=== PATIENT | female | born 1965 | race Two or more races ===

== ENCOUNTER → 2017-10-23 | Outpatient (CLI) | payer OTHER ==
--- NOTE | 2017-11-04 15:09 | MM ---
Reason for exam: clinical finding. Last mammogram was performed 2 years and 2 months ago. History: Family history of breast cancer in maternal grandmother at age 80. Took hormonal contraceptives for 3 months. Indicated problem(s): pain in both breasts. Physical Findings: Nurse did not find any significant physical abnormalities on exam. MG 3D Diag Mammo W/Cad VIRIDIANA Bilateral CC and MLO view(s) were taken. Technologist: Lisa Deleon RT (R)(M) Prior study comparison: August 29, 2015, mammogram, performed at [facility]. The breast tissue is heterogeneously dense. This may lower the sensitivity of mammography. There is chronic nodularity bilaterally. There is no discrete abnormality. These results were verbally communicated with the patient 11/04/17. ASSESSMENT: Benign, BI-RAD 2 RECOMMENDATION: Routine screening mammogram of both breasts in 1 year. Manage on a clinical basis with regard to left pain.
== END | disposition home or self-care (01) ==
LOC: RADMAMWWP 08:29
PROVIDERS: ATTEND Obstetrics & Gynecology
DX: N64.4 Mastodynia (principal)
CPT/HCPCS: 77062; 77066

== ENCOUNTER → 2017-11-06 | Outpatient (CLI) | payer OTHER ==
--- NOTE | 2017-11-06 11:30 | P.GSHP ---
History of Present Illness H&P Date: 11/06/17 The patient is a 51 year old white female with a complaint of the left breast being larger than the right breast. It is sore and she feels a thickness at that site. She feels her bra is fitting differently. This has occurred over a month. Patient last mammogram on 10/23/17. This was BIRADS 2, no discrete abnormality was seen. She is not having periods as she had a uterine ablation for bleeding. No masses in her breast. No nipple discharge. She used control pills for approximately 3 months and noted the change in her breast close to the proximity of time she stopped the BCP. However despite the fact that she has been off them now for 3 months the left breast has not decreased in size. The patient did have a 10 pound weight gain related to the BCP which she has not lost. The patient drinks approximately 3 cups of coffee per day. The patient does eat chocolate intermittently. The patient does not smoke and is not exposed to secondhand smoke. Family History: 1. maternal breast cancer in er 80's 2. neice dx. breast cancer in her 20's of cancer, not known if she had genetic testing 3. paternal grandfather prostate cancer Past Surgical History: 1. Uterine ablation 2. Carpal tunnel surgery right 3. Right elbow tendon release Past medical history: none Social history: Smoking: Negative Alcohol: Occasional Drugs: Negative Menarche: 16 2 Pregnancies, 2 children, breast fed: both, first at 24 Menopause: Uncertain as she had a uterine ablation 10 years ago and has not had periods since that time BCP: used for three months, and did not feel well so stopped them three months ago, August 2017 Hormones: none - Constitutional Constitutional: Reports sweats, Denies chills, Denies fever - EENT Eyes: denies blurred vision, denies pain Ears: deny: decreased hearing, tinnitus Ears, nose, mouth and throat: Reports headache, Denies sore throat - Breasts Breasts: bilateral: as per HPI - Cardiovascular Cardiovascular: Denies chest pain, Denies shortness of breath - Respiratory Respiratory: Denies cough, Denies 7 - Gastrointestinal Gastrointestinal: Denies abdominal pain, Denies diarrhea, Denies nausea, Denies vomiting - Genitourinary (Female) Genitourinary: Denies dysuria, Denies hematuria - Menstruation Menstruation: Reports as per HPI - Musculoskeletal Comment: Right wrist and right elbow surgery Musculoskeletal: Denies myalgias - Integumentary Integumentary: Denies pruritus, Denies rash - Neurological Neurological: Denies numbness, Denies weakness - Psychiatric Psychiatric: Denies anxiety, Denies depression - Endocrine Comment: Patient 10 pound weight gain related to BCP. Endocrine: Denies fatigue, Denies weight change - Hematologic/Lymphatic Comment: none - Allergic/Immunologic Allergic/Immunologic: Reports seasonal allergies Medications and Allergies Home Medications and Allergies Comment(s): MVI magnesium nasocort Allergies Allergy/AdvReac Type Severity Reaction Status Date / Time Sulfa (Sulfonamide Allergy Rash/Hives Verified 11/06/17 11:30 Antibiotics) Surgical - Exam - General well developed, well nourished, no distress - Eyes normal ocular movement, no icteric - ENT no hearing loss, no congestion - Neck no masses, trachea midline - Respiratory normal respiratory effort, clear to auscultation - Cardiovascular Rhythm: regular Heart Sounds: normal: S1, S2 - Abdomen Abdomen: soft, non tender, no guarding, no rigid, no rebound - Neurologic no disoriented, no combative - Musculoskeletal normal gait, normal posture - Psychiatric oriented to time, oriented to person, oriented to place, speech is normal, memory intact Breast examination: Right breast: Multiple positional exam fibrocystic changes no discrete abnormalities of concern Right axilla: No adenopathy of concern Left breast: Fibrocystic changes noted on multiple positional exam with some increased fullness in the upper outer quadrant believed to be related to fibrocystic change Left axilla: No adenopathy of concern Results mammogram report reviewed Assessment and Plan Assessment: Impression/plan: 1. Left breast fullness and pain 2. BIRADS 2 mammogram October 2017 3. Uterine ablation 4. Fullness on exam in the UOQ of the left breast Plan: 1. FNA left breast fullness 2. Further recommendation following FNA patient to call in one week for results if this is atypical biopsy would be recommended otherwise repeat exam in 3 months 3. Physician exam in 3 months after patient stops caffeine and starts primrose oil 4. We'll see patient sooner if she has any questions or concerns cc: DR. Brock Guillermo, [place], Dr. Baker
--- NOTE | 2017-11-06 11:33 | P.PN ---
Progress Note - Text Progress Note Date: 11/06/17 FNA of the left breast Preprocedure diagnosis: Increased fullness left breast upper outer quadrant area Surgeon: Prateek Procedure: The area of concern in the left breast was prepped using alcohol. A 22-gauge needle was used to make multiple passes into the area of concern connected to a syringe with vacuum suction being applied. The specimen was obtained and the specimen was placed on a slide which was prepped and sent to pathology. The patient tolerated the procedure with no complications.
[2017-11-06 11:36] VITALS: BP 120/74; PULSE 85; TEMP 98.6; BMI 24.4
== END | disposition home or self-care (01) ==
LOC: WWCWWP 10:55
PROVIDERS: ATTEND Surgery
DX: N64.9 Disorder of breast, unspecified (principal)
CPT/HCPCS: 88173

== ENCOUNTER → 2018-08-10 | Outpatient (CLI) | payer OTHER ==
[2018-08-10 17:43] LABS: Basophils # (A) 0.1 k/uL (0-0.2); Basophils % (A) 1 %; Eosinophils # (A) 0.3 k/uL (0-0.7); Eosinophils % (A) 4 %; HGB 14.4 gm/dL (11.4-16.0); Lymphocytes # (A) 2.4 k/uL (1.0-4.8); Lymphocytes % (A) 30 %; MCH 33.2 pg (25.0-35.0); MCHC 33.5 g/dL (31.0-37.0); MCV 99.3 fL (80.0-100.0); Mean Platelet Volume 8.1; Monocytes # (A) 0.5 k/uL (0-1.0); Monocytes % (A) 6 %; Neutrophils # (A) 4.5 k/uL (1.3-7.7); Neutrophils % (A) 56 %; Platelet Count 239 k/uL (150-450); RBC 4.33 m/uL (3.80-5.40); RDW 12.5 % (11.5-15.5)
== END | disposition home or self-care (01) ==
LOC: LABPAT 17:20
PROVIDERS: ATTEND Obstetrics & Gynecology
DX: Z01.818 Encounter for other preprocedural examination (principal); Z01.812 Encounter for preprocedural laboratory examination
CPT/HCPCS: 36415; 85025; 93005

== ENCOUNTER 2018-08-18 06:28 | Day surgery (SDC) | payer OTHER ==
[2018-08-12 12:53] VITALS: BMI 25.3
--- NOTE | 2018-08-17 16:05 | P.HPOB ---
History of Present Illness H&P Date: 08/17/18 Chief Complaint: Family planning This is a 52-year-old female 2 para 2 who presents for laparoscopic bilateral tubal ligation via fulguration for family planning. She has had a previous endometrial ablation and does not have any periods at this time however her hormone levels do not show that she is menopausal and she is in a new relationship and needs prevention. She does experience menstrual symptoms but has no flow. Obstetrical history: . History of 2 vaginal deliveries. Gynecologic history: History of genital warts in the past. Social history: She is . She does clerical work. Review of Systems Constitutional: Reports fatigue, Reports night sweats, Denies chills, Denies fever Eyes: denies blurred vision, denies pain Ears, nose, mouth and throat: Reports headache (Occasional), Denies sore throat Cardiovascular: Denies chest pain, Denies shortness of breath Respiratory: Denies cough Gastrointestinal: Denies abdominal pain, Denies diarrhea, Denies nausea, Denies vomiting Genitourinary: Denies dysuria, Denies hematuria Menstruation: Reports amenorrhea, Denies postmenopausal Musculoskeletal: Denies myalgias Integumentary: Denies pruritus, Denies rash Neurological: Denies numbness, Denies weakness Psychiatric: Reports insomnia, Reports irritability Hematologic/Lymphatic: Reports easy bruising Past Medical History Past Medical History: Osteoarthritis (OA), Skin Disorder Additional Past Medical History / Comment(s): Imelda sclerosis on outside of labia. History of Any Multi-Drug Resistant Organisms: None Reported Past Surgical History: Orthopedic Surgery, Uterine Ablation Additional Past Surgical History / Comment(s): Carpal tunnel right wrist. Tendon release right elbow Past Anesthesia/Blood Transfusion Reactions: Family History of Problems w/ Anesthesia, Motion Sickness Additional Past Anesthesia/Blood Transfusion Reaction / Comment(s): Mom slow to wake up. Past Psychological History: No Psychological Hx Reported Smoking Status: Never smoker Past Alcohol Use History: Occasional Past Drug Use History: None Reported - Past Family History Mother Family Medical History: Cancer, Diabetes Mellitus, Thyroid Disorder Additional Family Medical History / Comment(s): Kidney cancer. Father Additional Family Medical History / Comment(s): heart disorder Sister(s) Family Medical History: Cancer, Thyroid Disorder Medications and Allergies Home Medications Medication Instructions Recorded Confirmed Type Multivitamins, Thera [Multivitamin 1 tab PO DAILY 11/06/17 08/12/18 History (formulary)] Triamcinolone Acetonide [Nasacort] 1 spray EA NOSTRIL DAILY 11/06/17 08/12/18 History Magnesium 1 tab PO DAILY 08/12/18 08/12/18 History Allergies Allergy/AdvReac Type Severity Reaction Status Date / Time Sulfa (Sulfonamide Allergy Rash/Hives Verified 08/12/18 12:53 Antibiotics) Exam Osteopathic Statement: *. No significant issues noted on an osteopathic structural exam other than those noted in the History and Physical/Consult. HEENT: Within normal limits Heart: Regular rate and rhythm Lungs: Clear to auscultation bilaterally Abdomen: Soft, nontender Pelvic exam: Uterus is anteverted, nontender, with no adnexal masses or tenderness palpated. Extremities: Negative Homans Assessment and Plan (1) Family planning Status: Acute Code(s): Z30.09 - ENCOUNTER FOR OTH GENERAL CNSL AND ADVICE ON CONTRACEPTION SNOMED Code(s): 469907751 Plan: Proceed with laparoscopic bilateral tubal ligation via fulguration. I have discussed the risks, benefits, and alternative therapies for the above- mentioned procedure and for both sedation/anesthesia as well as necessary blood products administration, if indicated, as they pertain to this patient. The patient has indicated her understanding and acceptance of the risks and procedures discussed.
[~2018-08-18 06:28] MED LIST: DEXAMETHASONE SOD PHOSPHATE 10 MG/ML 1 ML VIAL IV ONE; HYDROmorphone 0.5 MG/0.5 ML SYRINGE IVP PRN; LACTATED RINGERS 1,000 ML IV SCH; LIDOCAINE 1% 20 ML VIAL (10MG/ML) FOR IV START INTRADERMA PRN; MIDAZOLAM 2 MG/2 ML VIAL IV PRN; ONDANSETRON 4 MG/2 ML VIAL IVP ONE; Pre Op ABX Message 1 EACH MISC MISCELLANE ONE; SCOPOLAMINE 1.5MG/72HR PATCH TRANSDERM ONE
[2018-08-18] MEDS ORDERED: MIDAZOLAM 2 MG/2 ML VIAL ONE (07:29)
[2018-08-18] MEDS ORDERED: PROPOFOL 10 MG/ML 20 ML VIAL IV ONE (07:29)
[2018-08-18] MEDS ORDERED: ROCURONIUM BROMIDE 10 MG/ML 10 ML VIAL IV ONE (07:29)
[2018-08-18] MEDS ORDERED: fentaNYL (PF) 50 MCG/ML 2 ML AMP ONE (07:29)
[2018-08-18] MEDS ORDERED: NEOSTIGMINE 1 MG/ML 10 ML VIAL ONE (07:29)
[2018-08-18] MEDS ORDERED: KETOROLAC 30 MG/ML 1 ML VIAL ONE (07:29)
[2018-08-18] MEDS ORDERED: LIDOCAINE 1% INJ 10MG/ML (20 ML MDV) ONE (07:29)
[2018-08-18] MEDS ORDERED: GLYCOPYRROLATE 0.2 MG/ML 2 ML VIAL ONE (07:29)
[2018-08-18] MEDS ORDERED: BUPIVACAINE (PF) 0.5% 30 ML VIAL SQ ONE ×2 (07:55)
--- NOTE | 2018-08-18 08:21 | P.OP ---
Date of Procedure: 08/18/18 Preoperative Diagnosis: Family planning Postoperative Diagnosis: Same Procedure(s) Performed: Laparoscopic bilateral tubal ligation via fulguration Anesthesia: JARRED Surgeon: Maria A Baker Estimated Blood Loss (ml): 10 Pathology: none sent Condition: stable Disposition: same day Indications for Procedure: This is a 52-year-old female 2 para 2 who presents for laparoscopic bilateral tubal ligation via fulguration for family planning. She has had a previous endometrial ablation and does not have any periods at this time however her hormone levels do not show that she is menopausal and she is in a new relationship and needs prevention. She does experience menstrual symptoms but has no flow. Operative Findings: Normal uterus tubes and ovaries are noted. Uterus is found to be anteverted. Appendix is visualized and appears normal. Description of Procedure: The patient is taken to the operating room where she is placed in the dorsal lithotomy position. She is prepped and draped in the normal sterile fashion. Bladder is drained with a catheter and then removed. Examination is performed under anesthesia. Uterus is found to be in a anteverted position. No adnexal masses were palpated. Next a bivalve speculum was placed in the patient's vagina. A single-tooth tenaculum was used to grasp the anterior lip of the cervix. An acorn uterine manipulator was then inserted through the cervix and attached to the tenaculum. Speculum was then removed. Gloves are changed and attention was turned to the abdomen. The infraumbilical fold was grasped in transverse fashion with 2 Allis clamps. A small transverse incision was made with a scalpel. A hemostat was used to carry the incision down to the underlying layer of fascia. A towel clip was placed above the umbilicus for retraction. A 11 mm disposable bladeless trocar was then inserted into the peritoneal cavity under direct visualization. Once inside, pneumoperitoneum was achieved with CO2 gas. The insert was removed and the camera was placed. Intraperitoneal placement was confirmed. No bleeding was noted. Next the patient was placed in Trendelenburg position. A small stab incision was made suprapubically and a 5 mm disposable bladeless trocar was inserted into the peritoneal cavity under direct visualization. Once inside pelvic contents were inspected. Next a bipolar Kleppinger instrument was placed through the inferior trocar and the midportion of each tube was brought away from other structures and completely fulgurated on approximate 2-3 cm segment of each tube. Excellent hemostasis was noted. A picture was taken. Pneumoperitoneum was released after the inferior trocar was removed under direct visualization. The upper trocar was then removed. The fascial incision was closed with 0 Vicryl suture in int errupted [id number] stitch. The skin incisions were then closed with 4-0 Vicryl suture in a subcuticular fashion. Next the incision sites were injected with half percent Marcaine. Approximately 6 mL were used. Next the uterine manipulator was removed. A ring forcep was used to grasp the anterior lip of the cervix for hemostasis. Once the ring forcep was removed, minimal bleeding was noted. All sponge and needle counts are correct. The patient is then taken to recovery room in stable condition.
[2018-08-18 08:30] VITALS: TEMP 97.8
[2018-08-18] MEDS ORDERED: LACTATED RINGERS 1,000 ML IV ONE (08:54)
[2018-08-18 09:19] VITALS: RESP 16
[2018-08-18 09:57] VITALS: BP 114/66; PULSE 60
== END 2018-08-18 10:17 | disposition home or self-care (01) ==
LOC: OR 06:28
PROVIDERS: ATTEND Obstetrics & Gynecology
DX: Z30.2 Encounter for sterilization (principal); M19.90 Unspecified osteoarthritis, unspecified site; L90.0 Lichen sclerosus et atrophicus; Z79.899 Other long term (current) drug therapy; Z88.2 Allergy status to sulfonamides; Z80.51 Family history of malignant neoplasm of kidney; Z83.3 Family history of diabetes mellitus
CPT/HCPCS: 81025; 58670; J2250; J1100; J2710; J2405; J2001; J3010; J1885; J2704; J1170

== ENCOUNTER → 2018-11-17 | Outpatient (CLI) | payer OTHER ==
--- NOTE | 2018-11-19 11:42 | MM ---
Reason for exam: screening (asymptomatic). Last mammogram was performed 1 year and 1 month ago. History: Family history of breast cancer in maternal grandmother at age 80. Took hormonal contraceptives for 3 months. Physical Findings: A clinical breast exam by your physician is recommended on an annual basis and results should be correlated with mammographic findings. MG 3D Screening Mammo W/Cad Bilateral CC and MLO view(s) were taken. Prior study comparison: October 23, 2017, bilateral MG 3d diag mammo w/cad VIRIDIANA. The breast tissue is heterogeneously dense. This may lower the sensitivity of mammography. Right upper outer quadrant lymph node was previously partly outside the field of view. Now better seen. Nodular asymmetry medial left breast not clearly seen on MLO. Further evaluation recommended. ASSESSMENT: Incomplete: need additional imaging evaluation, BI-RAD 0 RECOMMENDATION: Special view mammogram of the left breast. (3D) If lesion persists on supplemental views, image directed ultrasound is recommended. [facility] will attempt to contact patient to return for supplemental views and ultrasound if indicated.
== END | disposition home or self-care (01) ==
LOC: RADMAMWWP 07:12
PROVIDERS: ATTEND Obstetrics & Gynecology
DX: Z12.31 Encounter for screening mammogram for malignant neoplasm of breast (principal); Z80.3 Family history of malignant neoplasm of breast
CPT/HCPCS: 77063; 77067

== ENCOUNTER → 2018-12-01 | Outpatient (CLI) | payer OTHER ==
--- NOTE | 2018-12-01 10:49 | MM ---
Reason for exam: additional evaluation requested from abnormal screening. Last mammogram was performed less than 1 month ago. History: Family history of breast cancer in maternal grandmother at age 80, breast cancer in sister at age 59, and breast cancer in maternal aunt at age 65. Took hormonal contraceptives for 1 year 3 months beginning at age 19. Physical Findings: Nurse did not find any significant physical abnormalities on exam. MG 3D Work Up W/Cad LT Spot compression CC, CCRM, CCRL, and LM view(s) were taken of the left breast. Prior study comparison: November 17, 2018, bilateral MG 3d screening mammo w/cad. October 23, 2017, bilateral MG 3d diag mammo w/cad VIRIDIANA. The breast tissue is heterogeneously dense. This may lower the sensitivity of mammography. 9mm left medial asymmetry 7cm from nipple persists with probable correlate of the inferior breast. These results were verbally communicated with the patient and result sheet given to the patient on 12/01/18. ASSESSMENT: Incomplete: need additional imaging evaluation, BI-RAD 0 RECOMMENDATION: Ultrasound of the left breast.
--- NOTE | 2018-12-01 10:50 | USB ---
Reason for exam: additional evaluation requested from abnormal screening. History: Family history of breast cancer in maternal grandmother at age 80, breast cancer in sister at age 59, and breast cancer in maternal aunt at age 65. Took hormonal contraceptives for 1 year 3 months beginning at age 19. US Breast Workup Limited LT Left limited breast ultrasound including focal area of concern, retroareolar and axilla demonstrates ductal ectasia at 7 o'clock, 9 o'clock and the posterior nipple. No sonographic correlate. These results were verbally communicated with the patient and result sheet given to the patient on 12/01/18. ASSESSMENT: Probably benign, BI-RAD 3 RECOMMENDATION: Follow-up diagnostic mammogram of the left breast in 6 months.
== END | disposition home or self-care (01) ==
LOC: RADMAMWWP 08:45
PROVIDERS: ATTEND Obstetrics & Gynecology
DX: R92.8 Other abnormal and inconclusive findings on diagnostic imaging of breast (principal)
CPT/HCPCS: 77061; 77065

== ENCOUNTER → 2019-07-05 | Outpatient (CLI) | payer OTHER | END | disposition home or self-care (01) | DX: E04.2 Nontoxic multinodular goiter (principal) | CPT/HCPCS: 76536 ==

== ENCOUNTER → 2020-01-26 | Outpatient (CLI) | payer OTHER ==
--- NOTE | 2020-01-27 07:44 | MM ---
Reason for exam: additional evaluation requested from prior study. Last mammogram was performed 1 year and 2 months ago. History: Family history of breast cancer in maternal grandmother at age 80, breast cancer in sister at age 59, and breast cancer in maternal aunt at age 65. Took hormonal contraceptives for 1 year 3 months beginning at age 19. Physical Findings: Nurse did not find any significant physical abnormalities on exam. MG 3D Diag Mammo W/Cad VIRIDIANA Bilateral CC and MLO view(s) were taken. Prior study comparison: December 01, 2018, left breast MG 3d work up w/cad LT. November 17, 2018, bilateral MG 3d screening mammo w/cad. The breast tissue is heterogeneously dense. This may lower the sensitivity of mammography. There is an indeterminate group of microcalcifications in the upper outer left breast. These results were verbally communicated with the patient and result sheet given to the patient on 01/26/20. ASSESSMENT: Suspicious, BI-RAD 4 RECOMMENDATION: Stereotactic core biopsy of the left breast. Called Dr. Baker's office with mammographic findings and has scheduled an appointment for the patient for 02/11/20 at 7:[address] Chandra. Biopsy scheduled for 02/11/20 at 8:00. PRELIMINARY REPORT CALLED AND FAXED TO DR. CHANDRA ON 01/27/20.
--- NOTE | 2020-01-27 16:27 | BD ---
EXAMINATION TYPE: Axial Bone Density DATE OF EXAM: 01/26/2020 COMPARISON: NONE CLINICAL HISTORY: Postmenopausal female Height: 63 Weight: 126.6 FRAX RISK QUESTIONS: Alcohol (3 or more units per day): no Family History (Parent hip fracture): no Glucocorticoids (More than 3mos): no (Ex: prednisone, prednisolone, methylprednisolone, dexamethasone, and hydrocortisone). History of Fracture in Adulthood: no Secondary Osteoporosis: 1. Type 1 Diabetes: no 2. Hyperthyroidism: no 3. Menopause before 45: yes 4. Malnutrition: no 5. Chronic liver disease: no Rheumatoid Arthritis: no Current Tobacco Use: no RISK FACTORS HISTORY OF: Surgery to Spine/Hip(right/left)/Wrist (right/left): no Family History of Osteoporosis: no Active: yes Diet low in dairy products/other sources of calcium: yes Postmenopausal woman: ablation before age 46 Lost more than 2 inches in height since high school: no MEDICATIONS: none Additional History: EXAM MEASUREMENTS: Bone mineral densitometry was performed using the [employer] System. Bone mineral density as measured about the Lumbar spine is: ----- L1-L4(G/cm2): 1.261 T Score Values are as follows: ----- L2: 0.3 ----- L3: 1.0 ----- L4: 1.3 ----- L1-L4: 0.7 Bone mineral density : baseline Bone mineral density about the R hip (g/cm2): 0.920 Bone mineral density about the L hip (g/cm2): 0.948 T Score values are as follows: -----R Neck: -0.8 -----L Neck: -0.6 -----R Total: -0.2 -----L Total: 0.0 Bone mineral density : baseline IMPRESSION: Normal (Values between +1 and -1 indicate normal bone mass). Consider repeating this study in 5 year s or sooner if there is some new clinical indication. NOTE: T-SCORE=SD OF THE YOUNG ADULT MEAN.
== END | disposition home or self-care (01) ==
LOC: RADMAMWWP 14:33
PROVIDERS: ATTEND Obstetrics & Gynecology
DX: R92.8 Other abnormal and inconclusive findings on diagnostic imaging of breast (principal); N95.1 Menopausal and female climacteric states
CPT/HCPCS: 77062; 77066; 77080

== ENCOUNTER → 2020-02-11 | Day surgery (SDC) | payer OTHER ==
[2020-02-11 07:12] VITALS: RESP 16
--- NOTE | 2020-02-11 08:03 | P.GSHP ---
History of Present Illness H&P Date: 02/11/20 Chief Complaint: Abnormal left breast mammogram Chantel is a 54-year-old white female seen in consultation for Dr. Baker who had a bilateral mammogram performed on . This revealed an indeterminate group of microcalcifications in the outer left breast. Stereotactic core biopsy was recommended. No lesions of concern were noted in the right breast. The patient states that approximately a year and a half ago she had a mammogram which revealed some thickening in the left breast and a six-month follow-up was recommended. However secondary to Covid. This was delayed until now when a bilateral mammogram was performed. She does not feel any lumps masses or nodul es in her breast. She is not complaining of any nipple discharge or skin changes. He is not had any trauma or infection in the breast. She had a questionable core biopsy/aspiration of the left breast approximately year and a half ago and that was benign. Caffeine: 2-3 cups of coffee per day Nicotine: Negative Theophylline: Occasional hormones: none uses Black Cohash Family history: mother: kidney cancer sister: tripple negative breast cancer dx. at 59 maternal neice: of breast cancer maternal aunt: breast cancer maternal grandmother: breast cancer Hormonal History: menarche: 17 , breast fed: yes, age at first : 23 menopause: ablataion stopped having periods in 30's hormones: none BCP: 1 year Surgical history: Tubal ligation Uterine ablation Right wrist carpal tunnel Right elbow release Medical History: none Social History: nicotine: none alcohol: Occasional Drugs: Negative - Constitutional Constitutional: Reports sweats - EENT Eyes: denies blurred vision, denies pain Ears: deny: decreased hearing, tinnitus Ears, nose, mouth and throat: Denies headache, Denies sore throat - Breasts Breasts: bilateral: as per HPI - Cardiovascular Cardiovascular: Denies chest pain, Denies shortness of breath - Respiratory Respiratory: Denies cough, Denies 7 - Gastrointestinal Gastrointestinal: Denies abdominal pain, Denies diarrhea, Denies nausea, Denies vomiting - Genitourinary (Female) Genitourinary: Denies dysuria, Denies hematuria - Menstruation Menstruation: Reports postmenopausal - Musculoskeletal Musculoskeletal: Denies myalgias - Integumentary Comment: lichen sclerosis Integumentary: Denies pruritus, Denies rash - Neurological Neurological: Denies numbness, Denies weakness - Psychiatric Psychiatric: Denies anxiety, Denies depression - Endocrine Endocrine: Denies fatigue, Denies weight change - Hematologic/Lymphatic Comment: none - Allergic/Immunologic Allergic/Immunologic: Reports seasonal allergies Past Medical History Past Medical History: No Reported History, Skin Disorder Additional Past Medical History / Comment(s): saul sclerosis on outside of labia History of Any Multi-Drug Resistant Organisms: None Reported Past Surgical History: Tubal Ligation, Uterine Ablation Additional Past Surgical History / Comment(s): carpal tunnel right wrist 2012. tendon release right elbow 2012. uterine ablation 2007 Past Anesthesia/Blood Transfusion Reactions: No Reported Reaction Past Psychological History: No Psychological Hx Reported Smoking Status: Never smoker Past Alcohol Use History: Occasional Past Drug Use History: None Reported - Past Family History Mother Family Medical History: Cancer, Diabetes Mellitus, Thyroid Disorder Additional Family Medical History / Comment(s): Kidney cancer. Father Additional Family Medical History / Comment(s): heart disorder Sister(s) Family Medical History: Cancer, Thyroid Disorder Medications and Allergies Home Medications Medication Instructions Recorded Confirmed Type Multivitamins, Thera [Multivitamin 1 tab PO DAILY 11/06/17 02/11/20 History (formulary)] Triamcinolone Acetonide [Nasacort] 1 spray EA NOSTRIL DAILY 11/06/17 02/11/20 History Black Cohosh Root [Black Cohosh] 200 mg PO DAILY 01/31/20 02/11/20 History Allergies Allergy/AdvReac Type Severity Reaction Status Date / Time Sulfa (Sulfonamide Allergy Rash/Hives Verified 02/11/20 07:07 Antibiotics) Surgical - Exam Vital Signs Temp Pulse Resp BP 97.9 F 65 16 118/76 02/11/20 07:08 02/11/20 07:08 02/11/20 07:08 02/11/20 07:08 BMI 22.1 - General well developed, well nourished, no distress - Eyes normal ocular movement - ENT no hearing loss, no congestion - Neck no masses, trachea midline - Respiratory normal expansion, normal respiratory effort, clear to auscultation - Cardiovascular Rhythm: regular Heart Sounds: normal: S1, S2 - Abdomen Abdomen: soft, non tender, no guarding, no rigid, no rebound - Integumentary normal turgor - Neurologic no disoriented, no combative - Musculoskeletal normal gait - Psychiatric oriented to time, oriented to person, oriented to place, speech is normal, memory intact Breast exam: BRA: 34C inspection: I lateral grade 2 ptosis Palpation: Right breast: Multiple positional exam fibrocystic changes, no dominant masses or nodules of concern Right axilla: No adenopathy of concern left breast: Multiple positional exam fibrocystic changes, no dominant masses or nodules of concern Left axilla: No adenopathy of concern Results Mammogram results reviewed Assessment and Plan Assessment: Impression: 1. Radiographic abnormality left breast 2. Fibrocystic breast changes 3. Probable perimenopausal 4. Family history of breast cancer Plan: 1. Sterotactic detected core biopsy left breast 2. Consider genetic testing 3. Patient is presently taking black cohosh she will stop this entirely, results of the biopsy CC: Dr. Baker, Dr. Anders Risk and benefits of the procedure were discussed with the patient and her . They understand the risks include but are not limited to bleeding, infection, reaction to the anesthetic. If the lesion were to be discordant on pathology we may recommend an open biopsy. If pathology dictated at surgery may be recommended. Alternatives such as watchful waiting open biopsy were discussed but not recommended. They understand and wish to proceed. encounter 25 minutes, > 50% of time in planning and counselling
--- NOTE | 2020-02-11 09:05 | P.PCN ---
Date of Procedure: 02/11/20 Preoperative Diagnosis: Left breast upper outer quadrant microcalcifications of concern Postoperative Diagnosis: Same Procedure(s) Performed: Stereotactic core biopsy left breast Anesthesia: local Surgeon: Larissa Chandra Pathology: other (Breast tissue) Condition: stable Disposition: same day Indications for Procedure: Microcalcifications of concern left breast upper outer quadrant Operative Findings: Dense breast tissue Description of Procedure: Chantel is a 54-year-old white female who was noted on a routine mammogram to have microcalcifications of concern in the upper outer quadrant of the left breast. A stereotactic core biopsy was recommended. Risk and benefits of the procedure were discussed with the patient as well as alternatives and she wished to proceed. The patient was taken to the stereotactic core biopsy wound. A scalp film was obtained. A lateral to medial approach was utilized. The area of concern was identified. The lesion was targeted. The breast was prepped using Betadine. 20 mL of 1% lidocaine were used to anesthetize the area of concern. A petite needle, 9-gauge vacuum-assisted core rotating needle was inserted to the correct location. Prefire films were obtained. The needle appeared to be in the archie ect location the needle was fired and post-fire films were obtained. 13 specimens were obtained. Radiograph of the specimen revealed a small focus of calcification the patient was concerned would not adequately sampled the area. Additional specimens were taken. Radiograph again revealed a calcification in the second tissue which had been sampled. This was reviewed with Dr. Bush from radiology. It was felt that the area had been sampled. A trimark clip was placed. The clip appeared to be in the area of the microcalcifications. The patient tolerated the procedure in stable condition. She will follow up with Dr. Cronin next week for results.
[2020-02-11 09:33] VITALS: BP 115/71; PULSE 61; TEMP 98
--- NOTE | 2020-02-11 10:06 | MM ---
EXAMINATION TYPE: MG stereo VAD BX LT DATE OF EXAM: 02/11/2020 COMPARISON: 01/26/2020 CLINICAL HISTORY: 54-year-old female referred for stereotactic core needle biopsy left breast microcalcifications posterior upper outer quadrant. TECHNIQUE: Stereotactic guided core biopsy of the left breast. FINDINGS: The procedure of stereotactic guided core biopsy was explained to the patient. Benefits, alternatives, and risks were discussed. An informed consent was then obtained. The [facility] pathway for biopsy was chosen. Shortness pathway was a lateral approach. I performed the localization, then surgeon, Dr. Mehrdad Lopez performed the remainder of the procedure. A vacuum assisted petite biopsy gun was used to obtain multiple core samples. The patient tolerated the procedure well without any immediate complication. The patient was kept in the radiology department for short stay after the procedure and then discharged home in stable condition. Only 3-4 punctate calcifications are identified in specimen mammogram. Post biopsy stereo image shows the clip to appear in satisfactory position relative to the targeted area of concern on the preprocedure images. However, on the postbiopsy mammogram, we note that only the anteriormost margin of the grouped calcifications may have been sampled and there is approximately 1.0 to 1.5 cm of anterolateral migration. IMPRESSION: UNCOMPLICATED STEREOTACTIC GUIDED CORE BIOPSY LEFT UPPER OUTER QUADRANT POSTERIOR MICROCALCIFICATIONS. NOTE THAT THE AREA MAY HAVE BEEN UNDERSAMPLED ONLY A FEW PUNCTATE CALCIFICATIONS ARE IN THE SPECIMEN MAMMOGRAM AND THE POSTBIOPSY MAMMOGRAM SUGGESTS THAT ONLY THE FAR ANTERIOR MARGIN WAS SAMPLED. 1.0 TO 1.5 CM OF ANTEROLATERAL CLIP MIGRATION. IF BENIGN RESULTS, REPEAT BIOPSY IS RECOMMENDED. CONSIDERATION CAN BE GIVEN TO A CC FROM ABOVE APPROACH THE CALCIFICATIONS ARE SLIGHTLY BETTER SEEN IN THAT PROJECTION. FULL PATHOLOGY RESULTS TO FOLLOW. Pathology Results: High Risk LEFT BREAST, STEREOTACTIC CORE BIOPSY: Focal atypical lobular hyperplasia (ALH) and background fibrocystic changes including fibrosis, sclerosing adenosis, cysts, apocrine metaplasia and rare microcalcifications. Recommendation Surgical consult of the left breast. MEL
== END ==
LOC: RADMAMWWP 06:59
PROVIDERS: ATTEND Surgery
DX: N60.82 Other benign mammary dysplasias of left breast (principal); N60.32 Fibrosclerosis of left breast; N60.22 Fibroadenosis of left breast; Z80.3 Family history of malignant neoplasm of breast; Z80.51 Family history of malignant neoplasm of kidney; Z98.51 Tubal ligation status; Z98.890 Other specified postprocedural states; Z83.3 Family history of diabetes mellitus; Z82.49 Family history of ischemic heart disease and other diseases of the circulatory system; Z83.49 Family history of other endocrine, nutritional and metabolic diseases; Z79.899 Other long term (current) drug therapy; Z88.2 Allergy status to sulfonamides
CPT/HCPCS: 88305; 19081; A4648; J2001

== ENCOUNTER → 2020-02-18 | Outpatient (CLI) | payer OTHER ==
[2020-02-18 11:58] VITALS: BP 125/73; PULSE 77; RESP 18; TEMP 97.6
--- NOTE | 2020-02-18 12:27 | P.PN ---
Subjective Progress Note Date: 02/18/20 Principal diagnosis: Atypical lobular hyperplasia left breast Chantel is a 54-year-old white female status post attempted core biopsy of calcifications in the left breast performed on 02/11/20. Pathology revealed focal atypical lobular hyperplasia and background fibrocystic changes. The area was removed with the radiologist the feeling was the anterior most margin of calcifications may have been sampled and there was an approximately 1-1.5 cm of anterior lateral migration. Therefore if the findings were benign than repeat biopsy was recommended. As the findings revealed atypical lobular hyperplasia therefore it is recommended that needle localization and excision of that area be performed. The patient tolerated the procedure with no complications. 61-year-old sister this week of metastatic breast cancer. We are uncertain as to whether she had genetic testing. Objective - Vital Signs Vital signs: Vital Signs Temp 97.6 F 02/18/20 11:53 Pulse 77 02/18/20 11:53 Resp 18 02/18/20 11:53 BP 125/73 02/18/20 11:53 Pulse Ox 98 02/18/20 11:53 Intake & Output 02/17/20 02/18/20 02/18/20 18:59 06:59 18:59 Weight 55.792 kg - Constitutional General appearance: Present: average body habitus - EENT Eyes: Present: EOMI ENT: Present: hearing grossly normal - Neck Neck: Present: normal ROM - Respiratory Respiratory: bilateral: CTA - Cardiovascular Rhythm: regular Heart sounds: normal: S1, S2 - Integumentary Integumentary: Present: normal turgor - Musculoskeletal Musculoskeletal: Present: gait normal - Psychiatric Psychiatric: Present: A&O x's 3 - Additional findings Additional findings: biopsy site left breast clean and dry no evidence of infection Assessment and Plan Assessment: Impression: 1. Atypical lobular hyperplasia answered tactic core biopsy left breast 2. Patient considering genetic testing 3. Patient has stopped taking black cohosh Plan: 1. Needle localization excisional biopsy area of concern left breast, this may include an area more extensive than just the area of the clip this has been reviewed with radiology 2. If patient is going to have genetic testing done would recommend this be done prior to the biopsy Risks and benefits of procedure discussed with the patient and her . They understand and we'll proceed in the near future. Dr. Baker, Dr. Anders encounter 15 minutes, > 50% of time in planning and counselling
== END | disposition home or self-care (01) ==
LOC: WWCWWP 11:35
PROVIDERS: ATTEND Surgery
DX: Z53.9 Procedure and treatment not carried out, unspecified reason (principal)

== ENCOUNTER → 2020-11-08 | Outpatient (CLI) | payer OTHER ==
[2020-11-08 13:44] LABS: Basophils # (A) 0.06 X 10*3/uL (0.00-0.10); Basophils % (A) 1.2 %; Eosinophils # (A) 0.19 X 10*3/uL (0.04-0.35); Eosinophils % (A) 3.7 %; HCT 42.9 % (37.2-46.3); HGB 13.8 g/dL (12.0-15.0); Lymphocytes # (A) 1.39 X 10*3/uL (0.90-5.00); MCH 32.7 pg (27.0-32.0); MCHC 32.2 g/dL (32.0-37.0); MCV 101.7 fL (80.0-97.0); Mean Platelet Volume 11.7 fL (9.5-12.2); Monocytes # (A) 0.54 X 10*3/uL (0.20-1.00); Monocytes % (A) 10.5 %; Neutrophils # (A) 2.95 X 10*3/uL (1.80-7.70); Neutrophils % (A) 57.4 %; Platelet Count 192 X 10*3/uL (140-440); RBC 4.22 X 10*6/uL (4.10-5.20); RDW 11.8 % (11.5-14.5); WBC 5.14 X 10*3/uL (4.50-10.00)
[2020-11-08 20:59] LABS: ALT 25 U/L (8-44); AST 27 U/L (13-35); African American GFR (CKD) 97.6 (60.0-200.0); Alkaline Phosphatase 82 U/L (41-126); BUN/Creat Ratio 28.75 Ratio (12.00-20.00); Calcium 9.8 mg/dL (8.7-10.3); Carbon Dioxide 26.8 mmol/L (21.6-31.8); Chloride 108 mmol/L (96-109); Chol/HDL Ratio 2.51; Cholesterol 148 mg/dL (0-200); Globulin 2.8 g/dL (1.6-3.3); Glucose 79 mg/dL (70-110); Non-African American GFR(CKD) 84.2 (60.0-200.0); Potassium 5.2 mmol/L (3.5-5.5); Sodium 143 mmol/L (135-145); Total Bilirubin 0.6 mg/dL (0.2-1.2); Triglycerides <50.0 mg/dL (0.0-149.0)
== END | disposition home or self-care (01) ==
LOC: LABWHC1 06:59
PROVIDERS: ATTEND Internal Medicine
DX: Z00.01 Encounter for general adult medical examination with abnormal findings (principal); Z13.220 Encounter for screening for lipoid disorders
CPT/HCPCS: 36415; 80053; 80061; 85025

== ENCOUNTER → 2021-06-14 | Outpatient (CLI) | payer OTHER ==
[2021-06-14 10:26] VITALS: BP 129/77; PULSE 87; RESP 16; TEMP 98
--- NOTE | 2021-06-14 11:40 | P.PN ---
Subjective Progress Note Date: 06/14/21 Principal diagnosis: high risk breast cancer Chantel is a 54-year-old white female seen in consultation for Dr. Baker who had a bilateral mammogram performed on . This revealed an indeterminate group of microcalcifications in the outer left breast. Stereotactic core biopsy was recommended. No lesions of concern were noted in the right breast. The patient states that approximately a year and a half ago she had a mammogram which revealed some thickening in the left breast and a six-month follow-up was recommended. However secondary to Covid. This was delayed until now when a bilateral mammogram was performed. She does not feel any lumps masses or nodules in her breast. She is not complaining of any nipple discharge or skin changes. He is not had any trauma or infection in the breast. She had a questionable core biopsy/aspiration of the left breast approximately year and a half ago and that was benign. A sterotactic core biopsy was done on 02-18-20 which showed atypical lobular hyperplasia. She was recommended to have an excisional biopsy. This was done at [place] and it was benign. Genetic testing was done on 03-10-20 which showed a variant of uncertain significance. 06-14-21 06-14-21 The patients sister was diagnosed with tripple (-) breast cancer at 60 and at 62 she had not had regular screening, it was stage III when diagnosed. Her daughter at 32 of breast cancer. She had another sister diagnosed with breast cancer at 64, Her2- stage one. She had been followed regularly at [facility] and they did not recommend bilateral mastectomy, she comes for another opinion. The patient has not noted any lumps masses or nodules of concern in either breast. She states he may be some slight discoloration of the left areolar complex relative to the past. She has not had any recent trauma or infection in the breast. She has annual MRI and 2 PE and a mammogram yearly. She most recently had an MRI in March which she states was benign. She states it is expensive and she doesn't want to do this any longer. She worries about the radiographic studies and this disrupts her life. She does not feel confident in doing breast self exams as her breasts are lumpy and dense. She has declined appointment with a plastic surgeon. Risk evaluation: NIH Risk Calculator: 5 year risk 9.5% for patient average risk 1.4% Lifetime risk for patient 51.5% average risk 10.4% Nahomy Risk Model: 5 year risk 5% lifetime risk: 31.7 Caffeine: 2-3 cups of coffee per day Nicotine: Negative chocolate: Occasional hormones: none uses Black Cohash in the past Family history: mother: kidney cancer sister: tripple negative breast cancer dx. at 59 maternal neice: of breast cancer at 32 maternal aunt: breast cancer maternal grandmother: breast cancer sister: breast cancer at 64 Hormonal History: menarche: 17 , breast fed: yes, age at first : 23 menopause: ablataion stopped having periods in 30's hormones: none BCP: 1 year Surgical history: Tubal ligation Uterine ablation Right wrist carpal tunnel Right elbow release Medical History: none Social History: nicotine: none alcohol: Occasional Drugs: Negative - Constitutional Constitutional: Reports sweats - EENT Eyes: denies blurred vision, denies pain Ears: deny: decreased hearing, tinnitus Ears, nose, mouth and throat: Denies headache, Denies sore throat - Breasts Breasts: bilateral: as per HPI - Cardiovascular Cardiovascular: Denies chest pain, Denies shortness of breath - Respiratory Respiratory: Denies cough - Gastrointestinal Gastrointestinal: Denies abdominal pain, Denies diarrhea, Denies nausea, Denies vomiting - Genitourinary (Female) Genitourinary: Denies dysuria, Denies hematuria - Menstruation Menstruation: Reports postmenopausal - Musculoskeletal Musculoskeletal: Denies myalgias - Integumentary Comment: lichen sclerosis Integumentary: Denies pruritus, Denies rash - Neurological Neurological: Denies numbness, Denies weakness - Psychiatric Psychiatric: Denies anxiety, Denies depression - Endocrine Endocrine: Denies fatigue, Denies weight change - Hematologic/Lymphatic Comment: none - Allergic/Immunologic Allergic/Immunologic: Reports seasonal allergies Objective - Vital Signs Vital signs: Vital Signs Temp 98.0 F 06/14/21 10:17 Pulse 87 06/14/21 10:17 Resp 16 06/14/21 10:17 BP 129/77 06/14/21 10:17 Pulse Ox Intake & Output 06/13/21 06/14/21 06/14/21 18:59 06:59 18:59 Weight 58.967 kg - Exam BMI 23 - Constitutional General appearance: Present: cooperative - EENT Eyes: Present: EOMI ENT: Present: hearing grossly normal - Neck Neck: Present: normal ROM - Respiratory Respiratory: bilateral: CTA - Cardiovascular Rhythm: regular Heart sounds: normal: S1, S2 - Gastrointestinal General gastrointestinal: Present: soft - Integumentary Integumentary: Present: normal turgor - Musculoskeletal Musculoskeletal: Present: gait normal - Psychiatric Psychiatric: Present: A&O x's 3, appropriate affect, intact judgment & insight - Additional findings Additional findings: Breast Exam: BRA: 34C inspection: grade 2 ptosis bilateral palpation: right breast: multipositional exam no dominate masses or nodules of concern right axilla Assessment and Plan Assessment: Impression: Risk for breast cancer Patient wishes prophylactic bilateral mastectomy Patient has agreed to meet with medical oncology for possible chemoprophylaxis Plan: Plan with medical oncology for possible chemoprophylaxis Close surveillance MRI alternating every 6 months with mammogram and breast exams Depending on meeting with medical oncology patient will decide whether she wishes for bilateral mastectomy She has declined appointment with plastic surgery Cc: Dr. Anders
== END ==
LOC: WWCWWP 09:51
PROVIDERS: ATTEND Surgery
DX: Z01.818 Encounter for other preprocedural examination (principal); R92.8 Other abnormal and inconclusive findings on diagnostic imaging of breast; Z88.2 Allergy status to sulfonamides

== ENCOUNTER → 2021-08-09 | Outpatient (CLI) | payer OTHER ==
[2021-08-09 16:39] VITALS: BP 126/74; PULSE 69; RESP 17; TEMP 98.5
--- NOTE | 2021-08-09 16:55 | P.PN ---
Subjective Progress Note Date: 08/09/21 Principal diagnosis: high risk of breast cancer high risk breast cancer Chantel is a 55 -year-old white female seen in consultation for Dr. Anders and Dr. Baker. The patient has a family history of breast cancer with a sister being diagnosed with triple-negative breast cancer at 60 and dying of this at 62. At this time the patient does not feel any lumps masses or nodules of concern in either breast. She has had a [place] breast [place] [address] an indeterminate group of microcalcifications in the outer left breast were identified. Stereotactic core biopsy was recommended. No lesions of concern were noted in the right breast. The patient underwent a stereotactic core biopsy on [id number] showed atypical lobular hyperplasia. This subsequently led to an excisional biopsy done at [facility] and she was told this was benign. Genetic testing was done on showed a variant of uncertain significance. She has been followed at [facility] undergoing annual MRI and physical exams as well as mammograms yearly. She states her most recent MRI was in March and she was told this was benign. At this time she states that the workup is expensive and she doesn't want to do this any longer. She worries about the radiographic studies and they disrupt her life. She does not feel confident doing breast self exams as her breasts are lumpy and dense. She wishes bilateral mastectomy. She has declined appointment with a plastic surgeon. Risk evaluation: NIH Risk Calculator: 5 year risk 9.5% for patient average risk 1.4% Lifetime risk for patient 51.5% average risk 10.4% Nahomy Risk Model: 5 year risk 5% lifetime risk: 31.7 Caffeine: 2-3 cups of coffee per day Nicotine: Negative chocolate: Occasional hormones: none uses Black Cohash in the past Family history: mother: kidney cancer sister: tripple negative breast cancer dx. at 60 at 62 maternal neice: of breast cancer at 32 maternal aunt: breast cancer maternal grandmother: breast cancer sister: breast cancer at 64 Hormonal History: menarche: 17 , breast fed: yes, age at first : 23 menopause: ablataion stopped having periods in 30's hormones: none BCP: 1 year Surgical history: Tubal ligation Uterine ablation Right wrist carpal tunnel Right elbow release Medical History: none Social History: nicotine: none alcohol: Occasional Drugs: Negative - Constitutional Constitutional: Reports sweats - EENT Eyes: denies blurred vision, denies pain Ears: deny: decreased hearing, tinnitus Ears, nose, mouth and throat: Denies headache, Denies sore throat - Breasts Breasts: bilateral: as per HPI - Cardiovascular Cardiovascular: Denies chest pain, Denies shortness of breath - Respiratory Respiratory: Denies cough - Gastrointestinal Gastrointestinal: Denies abdominal pain, Denies diarrhea, Denies nausea, Denies vomiting - Genitourinary (Female) Genitourinary: Denies dysuria, Denies hematuria - Menstruation Menstruation: Reports postmenopausal - Musculoskeletal Musculoskeletal: Denies myalgias - Integumentary Comment: lichen sclerosis Integumentary: Denies pruritus, Denies rash - Neurological Neurological: Denies numbness, Denies weakness - Psychiatric Psychiatric: Denies anxiety, Denies depression - Endocrine Endocrine: Denies fatigue, Denies weight change - Hematologic/Lymphatic Comment: none - Allergic/Immunologic Allergic/Immunologic: Reports seasonal allergies Objective - Constitutional General appearance: Present: cooperative - EENT Eyes: Present: EOMI ENT: Present: hearing grossly normal - Neck Neck: Present: normal ROM - Respiratory Respiratory: bilateral: CTA - Cardiovascular Rhythm: regular Heart sounds: normal: S1, S2 - Gastrointestinal General gastrointestinal: Present: soft - Integumentary Integumentary: Present: normal turgor - Musculoskeletal Musculoskeletal: Present: gait normal - Psychiatric Psychiatric: Present: A&O x's 3, appropriate affect, intact judgment & insight - Additional findings Additional findings: Breast examination: Bra: 34C inspection: bilateral grade 2 ptosis palpation: right breast: Multiple positional exam fibrocystic changes no dominant masses or nodules of concern Right axilla: No adenopathy of concern Left breast: Multi-positional exam fibrocystic changes no dominant masses or nodules of concern Left axilla: No adenopathy of concern Assessment and Plan Assessment: Impression: High risk breast cancer Plan: report on MRI/mammogram Patient wishes bilateral mastectomy surgical prophylaxis The patient has not interested in seeing a plastic surgeon, she is not interested in reconstruction Bilateral mastectomy, possible V-Y advancement flap in the axilla bilaterally Cc: Dr. Baker, Dr. Anders
== END ==
LOC: WWCWWP 16:30
PROVIDERS: ATTEND Surgery
DX: Z40.01 Encounter for prophylactic removal of breast (principal); Z80.3 Family history of malignant neoplasm of breast; Z88.2 Allergy status to sulfonamides

== ENCOUNTER 2021-08-28 08:04 | Day surgery (SDC) | payer BC, OTHER ==
[2021-08-27 09:14] VITALS: BMI 22.6
[~2021-08-28 08:04] MED LIST changes: -DEXAMETHASONE SOD PHOSPHATE 10 MG/ML 1 ML VIAL IV ONE; +HEPARIN SODIUM,PORCINE/PF 5,000 UNIT/0.5 ML SYRINGE SQ PRN; -LACTATED RINGERS 1,000 ML IV SCH; -LIDOCAINE 1% 20 ML VIAL (10MG/ML) FOR IV START INTRADERMA PRN; -ONDANSETRON 4 MG/2 ML VIAL IVP ONE; +SCOPOLAMINE 1 MG/72 HR PATCH TRANSDERM ONE; -SCOPOLAMINE 1.5MG/72HR PATCH TRANSDERM ONE
[2021-08-28] MEDS: ONDANSETRON 4 MG/2 ML VIAL IVP ONE ×2 (09:12→21:06)
[2021-08-28] MEDS: LACTATED RINGERS 1,000 ML IV SCH ×2 (09:12→09:24)
[2021-08-28] MEDS: DEXAMETHASONE SOD PHOSPHATE 4 MG/ML 1 ML VIAL IV ONE ×2 (09:12→21:06)
[2021-08-28] MEDS ORDERED: NEOSTIGMINE 1 MG/ML 10 ML VIAL ONE (09:26)
[2021-08-28] MEDS ORDERED: LIDOCAINE 2% INJ 20 MG/ML (2 ML VIAL) ONE (09:26)
[2021-08-28] MEDS ORDERED: ROCURONIUM 10 MG/ML (5 ML VIAL) IV ONE (09:26)
[2021-08-28] MEDS ORDERED: SUCCINYLCHOLINE CHLORIDE 100 MG/5 ML SYR IV ONE (09:26)
[2021-08-28] MEDS ORDERED: PROPOFOL 10 MG/ML 20 ML VIAL IV ONE (09:26)
[2021-08-28] MEDS ORDERED: GLYCOPYRROLATE 0.2 MG/ML 2 ML VIAL ONE (09:26)
[2021-08-28] MEDS ORDERED: fentaNYL (PF) 50 MCG/ML 2 ML AMP ONE (09:26)
[2021-08-28] MEDS ORDERED: MIDAZOLAM 2 MG/2 ML VIAL ONE (09:26)
[2021-08-28] MEDS ORDERED: LACTATED RINGERS 1,000 ML IV ONE ×3 (10:49→14:00)
[2021-08-28] MEDS ORDERED: NALOXONE 0.4 MG/ML 1 ML VIAL IV PRN (12:57)
[2021-08-28] MEDS ORDERED: ONDANSETRON 4 MG/2 ML VIAL IVP PRN (12:57)
[2021-08-28] MEDS ORDERED: HYDROmorphone 1 MG/ML 1 ML SYRINGE IVP PRN (12:57)
--- NOTE | 2021-08-28 12:57 | P.OP ---
Date of Procedure: 08/28/21 Preoperative Diagnosis: High risk for breast cancer Postoperative Diagnosis: Same Procedure(s) Performed: Bilateral prophylactic mastectomies Anesthesia: JARRED Surgeon: Larissa Chandra Estimated Blood Loss (ml): 50 IV fluids (ml): 1,700 Pathology: other (bilateral breast) Condition: stable Disposition: floor Indications for Procedure: High risk for breast cancer Operative Findings: Dense breast Description of Procedure: The patient is a 55-year-old white female noted to be at high risk for development of breast cancer. She wished bilateral prophylactic mastectomies. After extensive discussion she was very adamant that she wants bilateral mastectomies with no reconstruction. She was given the option of seeing a plastic surgeon and declined. The patient was taken to the operative suite. Both breasts were prepped and draped in a sterile fashion. The marked in the preoperative area such that surgery would be maintained. The right breast was approached initially. Superior skin flap was developed and carried down to the chest wall. Inferior flap was then developed. The breast was removed from medial to lateral using the electrocautery device and harmonic scalpel. Vessels were ligated as needed. The breast was removed. The superior area was marked using a short nylon suture and lateral along nylon suture. After we assured that hemostasis was attained Surgicel in powder form was placed. Additional skin was taken to remove any excessive tissue at the medial portion of the incision. A #10 LISANDRO drain was placed. The drain was secured using nylon suture. The deep tissues were closed using interrupted 3-0 Vicryl suture. A Vicryl running suture was then placed. A 4-0 Monocryl suture was placed. The procedure was repeated on the left side. The superior flap was developed and carried down to the chest wall. Inferior flap was then developed. The breast was removed from medial to lateral using the electrocautery device and harmonic scalpel. The breast was removed. The superior area was marked using a short nylon suture in the lateral area using a long nylon suture after assured that hemostasis was attained Surgicel in powder form was placed. Addit ional skin was removed was necessary to make the closure was flat as possible. A #10 LISANDRO drain was placed. The drain was secured using nylon suture. The deep tissues were closed using interrupted 3-0 Vicryl suture. A Vicryl running suture was then placed. A 4-0 Monocryl suture was placed. [place] were placed. All instrument and sponge counts were correct at the end of the case. The patient tolerated procedure in stable condition.
[2021-08-28] MEDS ORDERED: KETOROLAC 15 MG/ML 1 ML VIAL IVP ONE (13:56)
[2021-08-28] MEDS ORDERED: HYDROmorphone 0.5 MG/0.5 ML SYRINGE IVP ONE (13:56)
[2021-08-28] MEDS: SODIUM CHLORIDE 0.9% 1,000 ML IV SCH (18:26)
[2021-08-28] MEDS: HEPARIN SODIUM,PORCINE/PF 5,000 UNIT/0.5 ML SYRINGE SQ SCH (18:32)
[2021-08-28] MEDS: HYDROcodone/APAP 5-325MG 1 EACH TAB PO PRN ×2 (18:33→22:31)
[2021-08-29] MEDS: HEPARIN SODIUM,PORCINE/PF 5,000 UNIT/0.5 ML SYRINGE SQ SCH ×2 (02:19→10:27)
[2021-08-29] MEDS: HYDROcodone/APAP 5-325MG 1 EACH TAB PO PRN ×3 (02:19→10:30)
[2021-08-29] MEDS: SODIUM CHLORIDE 0.9% 1,000 ML IV SCH (02:20)
[2021-08-29 07:26] LABS: Basophils % (A) 0 %; Eosinophils % (A) 0 %; HCT 38.5 % (34.0-46.0); HGB 12.2 gm/dL (11.4-16.0); Lymphocytes # (A) 1.6 k/uL (1.0-4.8); Lymphocytes % (A) 14 %; MCH 32.4 pg (25.0-35.0); MCHC 31.8 g/dL (31.0-37.0); MCV 101.7 fL (80.0-100.0); Mean Platelet Volume 9.2; Monocytes # (A) 0.6 k/uL (0-1.0); Monocytes % (A) 6 %; Neutrophils # (A) 8.7 k/uL (1.3-7.7); Neutrophils % (A) 78 %; Platelet Count 208 k/uL (150-450); RBC 3.79 m/uL (3.80-5.40); RDW 11.5 % (11.5-15.5); WBC 11.2 k/uL (3.8-10.6)
--- NOTE | 2021-08-29 09:48 | P.PN ---
Subjective Progress Note Date: 08/29/21 Principal diagnosis: Postop day #1 bilateral mastectomy Chantel is a 55-year-old white female status post bilateral mastectomy for high risk of breast cancer. Postoperatively she is doing well without complaints. Hemoglobin: 12.2, white count: 11.2, LISANDRO output minimal and serous in nature. Objective - Vital Signs Vital signs: Vital Signs Temp 99.0 F 08/29/21 00:00 Pulse 102 H 08/29/21 00:00 Resp 16 08/29/21 00:00 BP 113/64 08/29/21 00:00 Pulse Ox 98 08/29/21 00:00 Intake & Output 08/28/21 08/29/21 08/29/21 18:59 06:59 18:59 Intake Total 2550 Output Total 400 507 Balance 2150 -507 Weight 58.014 kg Intake: IV 2550 Output: Drainage 7 Left 5 Right 2 Urine 350 500 Uretheral ([place]) 100 Estimated Blood Loss 50 Other: # Voids 0 - Constitutional General appearance: Present: cooperative - EENT Eyes: Present: EOMI ENT: Present: hearing grossly normal - Neck Neck: Present: normal ROM - Respiratory Respiratory: bilateral: CTA - Cardiovascular Heart sounds: normal: S1, S2 - Integumentary Integumentary Comment(s): Incisions clean and dry bilaterally LISANDRO drainage serous in nature bilateral Grade: 20 mL Left: 20 mL - Labs CBC & Chem 7: 08/29/21 06:42 Labs: Abnormal Lab Results - Last 24 Hours (Table) 08/29/21 Range/Units 06:42 WBC 11.2 H (3.8-10.6) k/uL RBC 3.79 L (3.80-5.40) m/uL MCV 101.7 H (80.0-100.0) fL Neutrophils # 8.7 H (1.3-7.7) k/uL Assessment and Plan Assessment: Impression: Patient postop day #1 doing well status post bilateral mastectomies Plan: Discharge home Follow-up Dr. Cronin on Friday Teach patient drain care CC: DR. Anders
--- NOTE | 2021-08-29 09:51 | P.DS ---
Providers Attending physician: Larissa Chandra Primary care physician: [facility] Course: Patient underwent a bilateral mastectomy on . Postoperatively she is doing well without complaints. She is ready for discharge. Plan - Discharge Summary Discharge Rx Participant: Yes New Discharge Prescriptions: No Action Multivitamins, Thera [Multivitamin (formulary)] 1 tab PO DAILY Triamcinolone Acetonide [Nasacort] 1 spray EA NOSTRIL DIRECTED Glucosam/Clark-Msm1/C/Daron/Bosw [Glucosamine-Chondroitin Tablet] 1 each PO DAILY Vitamin C/Biotin [Hair, Skin and Nails Chew] 1 tab PO DAILY Discharge Medication List Multivitamins, Thera [Multivitamin (formulary)] 1 tab PO DAILY 11/06/17 [History] Glucosam/Clark-Msm1/C/Daron/Bosw [Glucosamine-Chondroitin Tablet] 1 each PO DAILY 08/27/21 [History] Triamcinolone Acetonide [Nasacort] 1 spray EA NOSTRIL DIRECTED 08/27/21 [History] Vitamin C/Biotin [Hair, Skin and Nails Chew] 1 tab PO DAILY 08/27/21 [History] Follow up Appointment(s)/Referral(s): Larissa Chandra MD [STAFF PHYSICIAN] - 1-2 Days Patient Instructions/Handouts: Mastectomy (DC) Activity/Diet/Wound Care/Special Instructions: Do not drive until seen by Dr. Cronin teach patient drain care, drain and record twice a day and as needed Aleksandr wrap until seen by Dr. Cronin Discharge Disposition: HOME SELF-CARE
[2021-08-29 09:53] VITALS: BP 127/65; PULSE 94; RESP 17; TEMP 98.5
== END 2021-08-29 11:05 | disposition home or self-care (01) ==
LOC: OR 08:04 → 4FBP 12:50 → OR 08-29 11:05
PROVIDERS: ATTEND Surgery
DX: Z40.01 Encounter for prophylactic removal of breast (principal); N64.81 Ptosis of breast; Z80.3 Family history of malignant neoplasm of breast; J30.2 Other seasonal allergic rhinitis; Z88.2 Allergy status to sulfonamides; Z98.890 Other specified postprocedural states; Z98.51 Tubal ligation status; Z80.51 Family history of malignant neoplasm of kidney
CPT/HCPCS: 85025; 88307; 19303; J2250; J1100; J2710; J0690; J2405; J3010; J1170 ×2; J1885; J0330; J2704; J1644 ×2; J2001

== ENCOUNTER → 2021-08-31 | Outpatient (CLI) | payer BC ==
[2021-08-31 14:57] VITALS: BP 128/79; PULSE 72; RESP 17; TEMP 98.9
--- NOTE | 2021-08-31 15:05 | P.PN ---
Progress Note - Text Progress Note Date: 08/31/21 Patient [place] [id number]. Pathology revealed atypical hyperplasia in the right breast, she had previously had atypical hyperplasia on the left side. The patient is doing well postoperatively. She has minimal output from both of her drains. She has not recorded the amount however. Lungs: Clear Heart: Regular rate and rhythm Bilateral LISANDRO drain sites clean and dry minimal output Incisions clean and dry bilateral Impression: Patient doing well postoperative Plan: Remove every other staple Follow-up next week for drain removal Cc: Dr. Anders
== END ==
LOC: WWCWWP 14:33
PROVIDERS: ATTEND Surgery
DX: Z48.817 Encounter for surgical aftercare following surgery on the skin and subcutaneous tissue (principal); Z88.2 Allergy status to sulfonamides

== ENCOUNTER → 2022-02-28 | Outpatient (CLI) | payer BC ==
[2022-02-28 09:52] VITALS: BP 118/71; PULSE 82; RESP 17; TEMP 97.8
--- NOTE | 2022-02-28 10:10 | P.PN ---
Subjective Progress Note Date: 02/28/22 Principal diagnosis: high risk bilateral mastectomy high risk breast cancer 02-11-20 Chantel is a 54-year-old white female seen in consultation for Dr. Baker on 02-11-20 who had a bilateral mammogram performed on . This revealed an indeterminate group of microcalcifications in the outer left breast. Stereotactic core biopsy was recommended. No lesions of concern were noted in the right breast. The patient states that approximately a year and a half ago she had a mammogram which revealed some thickening in the left breast and a six- month follow-up was recommended. However secondary to Covid. This was delayed until now when a bilateral mammogram was performed. She does not feel any lumps masses or nodules in her breast. She is not complaining of any nipple discharge or skin changes. He is not had any trauma or infection in the breast. She had a questionable core biopsy/aspiration of the left breast approximately year and a half ago and that was benign. A sterotactic core biopsy was done on 02-18-20 which showed atypical lobular hyperplasia. She was recommended to have an excisional biopsy. This was done at [facility] and it was benign. Genetic testing was done on 03-10-20 which showed a variant of uncertain significance. 06-14-21 06-14-21 The patients sister was diagnosed with tripple (-) breast cancer at 60 and at 62 she had not had regular screening, it was stage III when diagnosed. Her daughter at 32 of breast cancer. She had another sister diagnosed with breast cancer at 64, Her2- stage one. She had been followed regularly at [facility] and they did not recommend bilateral mastectomy, she comes for another opinion. The patient has not noted any lumps masses or nodules of concern in either breast. She states he may be some slight discoloration of the left areolar complex relative to the past. She has not had any recent trauma or infection in the breast. She has annual MRI and 2 PE and a mammogram yearly. She most recently had an MRI in March which she states was benign. She states it is expensive and she doesn't want to do this any longer. She worries about the radiographic studies and this disrupts her life. She does not feel confident in doing breast self exams as her breasts are lumpy and dense. She has declined appointment with a plastic surgeon. 02-28-22 Patient underwent bilateral mastectomy for prophylaxis on . S does not feel any lumps masses or nodules of concern on her chest wall or under either arm. Risk evaluation prior to surgery: NIH Risk Calculator: 5 year risk 9.5% for patient average risk 1.4% Lifetime risk for patient 51.5% average risk 10.4% Nahomy Risk Model: 5 year risk 5% lifetime risk: 31.7 Caffeine: 2-3 cups of coffee per day Nicotine: Negative chocolate: Occasional hormones: none uses Black Cohash in the past Family history: mother: kidney cancer sister: tripple negative breast cancer dx. at 59 maternal neice: of breast cancer at 32 maternal aunt: breast cancer maternal grandmother: breast cancer sister: breast cancer at 64 Hormonal History: menarche: 17 , breast fed: yes, age at first : 23 menopause: ablataion stopped having periods in 30's hormones: none BCP: 1 year Surgical history: Tubal ligation Uterine ablation Right wrist carpal tunnel Right elbow release Medical History: none Social History: nicotine: none alcohol: Occasional Drugs: Negative - Constitutional Constitutional: Reports sweats - EENT Eyes: denies blurred vision, denies pain Ears: deny: decreased hearing, tinnitus Ears, nose, mouth and throat: Denies headache, Denies sore throat - Breasts Breasts: bilateral: as per HPI - Cardiovascular Cardiovascular: Denies chest pain, Denies shortness of breath - Respiratory Respiratory: Denies cough - Gastrointestinal Gastrointestinal: Denies abdominal pain, Denies diarrhea, Denies nausea, Denies vomiting - Genitourinary (Female) Genitourinary: Denies dysuria, Denies hematuria - Menstruation Menstruation: Reports postmenopausal - Musculoskeletal Musculoskeletal: Denies myalgias - Integumentary Comment: lichen sclerosis Integumentary: Denies pruritus, Denies rash - Neurological Neurological: Denies numbness, Denies weakness - Psychiatric Psychiatric: Denies anxiety, Denies depression - Endocrine Endocrine: Denies fatigue, Denies weight change - Hematologic/Lymphatic Comment: none - Allergic/Immunologic Allergic/Immunologic: Reports seasonal allergies Objective - Vital Signs Vital signs: Vital Signs Temp 97.8 F 02/28/22 09:50 Pulse 82 02/28/22 09:50 Resp 17 02/28/22 09:50 BP 118/71 02/28/22 09:50 Pulse Ox 99 02/28/22 09:50 FiO2 Intake & Output 02/27/22 02/28/22 02/28/22 18:59 06:59 18:59 Weight 58.513 kg - Constitutional General appearance: Present: cooperative - EENT Eyes: Present: EOMI ENT: Present: hearing grossly normal - Neck Neck: Present: normal ROM - Respiratory Respiratory: bilateral: CTA - Cardiovascular Rhythm: regular Heart sounds: normal: S1, S2 - Gastrointestinal General gastrointestinal: Present: soft - Integumentary Integumentary: Present: normal turgor - Musculoskeletal Musculoskeletal: Present: gait normal - Psychiatric Psychiatric: Present: A&O x's 3, appropriate affect, intact judgment & insight - Additional findings Additional findings: Chest wall examination Inspection: Bilateral well-healed scars Right chest wall: No evidence of any disease on the right chest wall Right axilla: No adenopathy of concern Left chest wall: No evidence of any disease in the left chest wall Left axilla: No adenopathy of concern Assessment and Plan Assessment: Impression: Patient status post bilateral mastectomy for high risk breast cancer prophylaxis Plan: No evidence of any breast cancer at this time follow up 1 year or sooner if any questions CC: Dr. Anders, Dr. Baker
== END | disposition home or self-care (01) ==
LOC: WWCWWP 09:20
PROVIDERS: ATTEND Surgery
DX: Z53.9 Procedure and treatment not carried out, unspecified reason (principal)

== ENCOUNTER → 2023-02-27 | Outpatient (CLI) | payer OTHER ==
[2023-02-27 11:08] VITALS: BP 126/81; PULSE 66; RESP 17; TEMP 98.3
--- NOTE | 2023-02-27 11:10 | P.PN ---
Subjective Progress Note Date: 02/27/23 high risk bilateral mastectomy 02-11-20 Chantel is a 54-year-old white female seen in consultation for Dr. Baker on 02-11-20 who had a bilateral mammogram performed on . This revealed an indeterminate group of microcalcifications in the outer left breast. Stereotactic core biopsy was recommended. No lesions of concern were noted in the right breast. The patient states that approximately a year and a half ago she had a mammogram which revealed some thickening in the left breast and a six-month follow-up was recommended. However secondary to Covid. This was delayed until now when a bilateral mammogram was performed. She does not feel any lumps masses or nodules in her breast. She is not complaining of any nipple discharge or skin changes. He is not had any trauma or infection in the breast. She had a questionable core biopsy/aspiration of the left breast approximately year and a half ago and that was benign. A sterotactic core biopsy was done on 02-18-20 which showed atypical lobular hyperplasia. She was recommended to have an excisional biopsy. This was done at [place] and it was benign. Genetic testing was done on 03-10-20 which showed a variant of uncertain significance. 06-14-21 06-14-21 The patients sister was diagnosed with tripple (-) breast cancer at 60 and at 62 she had not had regular screening, it was stage III when diagnosed. Her daughter at 32 of breast cancer. She had another sister diagnosed with breast cancer at 64, Her2- stage one. She had been followed regularly at [facility] and they did not recommend bilateral mastectomy, she comes for another opinion. The patient has not noted any lumps masses or nodules of concern in either breast. She states he may be some slight discoloration of the left areolar complex relative to the past. She has not had any recent trauma or infection in the breast. She has annual MRI and 2 PE and a mammogram yearly. She most recently had an MRI in March which she states was benign. She states it is expensive and she doesn't want to do this any longer. She worries about the radiographic studies and this disrupts her life. She does not feel confident in doing breast self exams as her breasts are lumpy and dense. She has declined appointment with a plastic surgeon. 02-28-22 Patient underwent bilateral mastectomy for prophylaxis on . She does not feel any lumps masses or nodules of concern on her chest wall or under either arm. 02-27-23 Is not complaining of any new lumps masses or nodules of concern on her chest wall or under either arm. Risk evaluation prior to surgery: NIH Risk Calculator: 5 year risk 9.5% for patient average risk 1.4% Lifetime risk for patient 51.5% average risk 10.4% Nahomy Risk Model: 5 year risk 5% lifetime risk: 31.7 Caffeine: 2-3 cups of coffee per day Nicotine: Negative chocolate: Occasional hormones: none uses Black Cohash in the past Family history: mother: kidney cancer sister: tripple negative breast cancer dx. at 59 maternal neice: of breast cancer at 32 maternal aunt: breast cancer maternal grandmother: breast cancer sister: breast cancer at 64 Hormonal History: menarche: 17 , breast fed: yes, age at first : 23 menopause: ablataion stopped having periods in 30's hormones: none BCP: 1 year Surgical history: Tubal ligation Uterine ablation Right wrist carpal tunnel Right elbow release Medical History: none Social History: nicotine: none alcohol: Occasional Drugs: Negative - Constitutional Constitutional: Reports sweats - EENT Eyes: denies blurred vision, denies pain Ears: deny: decreased hearing, tinnitus Ears, nose, mouth and throat: Denies headache, Denies sore throat - Breasts Breasts: bilateral: as per HPI - Cardiovascular Cardiovascular: Denies chest pain, Denies shortness of breath - Respiratory Respiratory: Denies cough - Gastrointestinal Gastrointestinal: Denies abdominal pain, Denies diarrhea, Denies nausea, Denies vomiting - Genitourinary (Female) Genitourinary: Denies dysuria, Denies hematuria - Menstruation Menstruation: Reports postmenopausal - Musculoskeletal Musculoskeletal: Denies myalgias - Integumentary Comment: lichen sclerosis Integumentary: Denies pruritus, Denies rash - Neurological Neurological: Denies numbness, Denies weakness - Psychiatric Psychiatric: Denies anxiety, Denies depression - Endocrine Endocrine: Denies fatigue, Denies weight change - Hematologic/Lymphatic Comment: none - Allergic/Immunologic Allergic/Immunologic: Reports seasonal allergies Objective - Vital Signs Vital signs: Vital Signs Temp 98.3 F 02/27/23 10:49 Pulse 66 02/27/23 10:49 Resp 17 02/27/23 10:49 BP 126/81 02/27/23 10:49 Pulse Ox 99 02/27/23 10:49 FiO2 Intake & Output 02/26/23 02/27/23 02/27/23 18:59 06:59 18:59 Weight 61.235 kg - Constitutional General appearance: Present: cooperative - EENT Eyes: Present: EOMI ENT: Present: hearing grossly normal - Neck Neck: Present: normal ROM - Respiratory Respiratory: bilateral: CTA - Cardiovascular Heart sounds: normal: S1, S2 - Musculoskeletal Musculoskeletal: Present: gait normal - Psychiatric Psychiatric: Present: A&O x's 3, appropriate affect, intact judgment & insight - Additional findings Additional findings: Chest wall examination Inspection: Bilateral well-healed scars Right chest wall: No evidence of any disease on the right chest wall Right axilla: No adenopathy of concern Left chest wall: No evidence of any disease in the left chest wall Left axilla: No adenopathy of concern Assessment and Plan Assessment: Impression: Patient status post bilateral mastectomy for high risk breast cancer prophylaxis Plan: No evidence of any breast cancer at this time follow up 1 year or sooner if any questions CC: Dr. Anders, Dr. Baker
== END | disposition home or self-care (01) ==
LOC: WWCWWP 10:35
PROVIDERS: ATTEND Surgery
DX: Z85.3 Personal history of malignant neoplasm of breast (principal); Z80.3 Family history of malignant neoplasm of breast; Z90.13 Acquired absence of bilateral breasts and nipples; Z88.2 Allergy status to sulfonamides

== ENCOUNTER → 2023-03-08 | Outpatient (CLI) | payer OTHER ==
[2023-03-08 23:15] LABS: Basophils # (A) 0.06 X 10*3/uL (0.00-0.10); Basophils % (A) 1.1 %; Eosinophils % (A) 1.8 %; HCT 43.9 % (37.2-46.3); HGB 14.2 g/dL (12.0-15.0); Lymphocytes # (A) 1.75 X 10*3/uL (0.90-5.00); Lymphocytes % (A) 30.9 %; MCH 32.1 pg (27.0-32.0); MCHC 32.3 g/dL (32.0-37.0); MCV 99.3 FL (80.0-97.0); Mean Platelet Volume 11.5 FL (9.5-12.2); Monocytes # (A) 0.42 X 10*3/uL (0.20-1.00); Monocytes % (A) 7.4 %; NRBC Per 100 WBC 0 X 10*3/uL (0.00-0.01); Neutrophils # (A) 3.33 X 10*3/uL (1.80-7.70); Neutrophils % (A) 58.6 %; Platelet Count 248 X 10*3/uL (140-440); RBC 4.42 X 10*6/uL (4.10-5.20); RDW 12.3 % (11.5-14.5); WBC 5.67 X 10*3/uL (4.50-10.00)
[2023-03-08 23:52] LABS: ALT 27 U/L (8-44); AST 26 U/L (13-35); Albumin 4.6 g/dL (3.8-4.9); Albumin/Globulin Ratio 1.84 Ratio (1.60-3.17); Alkaline Phosphatase 110 U/L (41-126); Blood Urea Nitrogen 19.6 mg/dL (9.0-27.0); Calcium 10.1 mg/dL (8.7-10.3); Carbon Dioxide 28.8 mmol/L (21.6-31.8); Chloride 104 mmol/L (96-109); Chol/HDL Ratio 2.43 Ratio; Globulin 2.5 g/dL (1.6-3.3); Glucose 90 mg/dL (70-110); LDL Cholesterol,Calculated 90.1 mg/dL (0.0-131.0); Potassium 4.4 mmol/L (3.5-5.5); Sodium 143 mmol/L (135-145); Total Bilirubin 0.4 mg/dL (0.3-1.2); Total Protein 7.1 g/dL (6.2-8.2)
== END | disposition home or self-care (01) ==
LOC: LABWHC1 11:20
PROVIDERS: ATTEND Internal Medicine
DX: Z00.01 Encounter for general adult medical examination with abnormal findings (principal); Z13.220 Encounter for screening for lipoid disorders; E55.9 Vitamin D deficiency, unspecified; R53.83 Other fatigue
CPT/HCPCS: 36415; 80053; 80061; 82306; 84443; 85025

== ENCOUNTER → 2023-07-17 | Outpatient (CLI) | payer OTHER ==
--- NOTE | 2023-07-17 19:57 | US ---
EXAMINATION TYPE: US thyroid st tissue head/neck DATE OF EXAM: 07/17/2023 COMPARISON: NONE CLINICAL INDICATION: Female, 57 years old with history of E01.0 IODINE DEFICIENCY GOITER; Goiter GLAND SIZE: Right Lobe: 4.2 x 1.3 x 1.7 cm Overall Parenchyma: homogeneous Left Lobe: 4.7 x 1.4 x 1.6 cm Overall Parenchyma: homogeneous Isthmus Thickness: 0.2 cm NODULES RIGHT: # of nodules measured on right: 1 1. 1.2 X 1.1 x 1.2 cm, lower , mixed cystic and solid, hypoechoic nodule, which is wider than tall, with smooth margins, without echogenic foci. TR 3 Prior size: 0.8 x 0.5 x 0.7 cm LEFT: # of nodules measured on left: 1 1. 0.6 X 0.7 x 0.7 cm, lower , , hypoechoic nodule with calcifications, which is wider than tall, w ith smooth margins Prior size: 0.6 x 0.6 x 0.6 cm ISTHMUS: # of nodules measured in the isthmus: 0 Bilateral neck scanned, no evidence of lymphadenopathy. IMPRESSION: 1. Enlarging heterogenous nodule inferior right thyroid lobe. Consider follow-up in one year 2017 ACR TI-RADS LEVEL: TR-RADS 3 - Mildly Suspicious: Follow if > 1.5 cm, FNA if > 2.5 cm *Highest TI-RADS level nodule reported
== END | disposition home or self-care (01) ==
LOC: RADUSWWP 16:20
PROVIDERS: ATTEND Internal Medicine
DX: E04.2 Nontoxic multinodular goiter (principal)
CPT/HCPCS: 76536

== ENCOUNTER → 2023-08-20 | Outpatient (CLI) | payer OTHER ==
[2023-08-20 16:25] LABS: T4, Free (Free Thyroxine) 1.31 ng/dL (0.80-1.80)
[2023-08-20 16:41] LABS: Prolactin 5.8 ng/mL (2.800-29.200)
== END | disposition home or self-care (01) ==
LOC: LABWHC1 11:25
PROVIDERS: ATTEND Internal Medicine Endocrinology, Diabetes & Metabolism
DX: E04.2 Nontoxic multinodular goiter (principal); R53.83 Other fatigue
CPT/HCPCS: 36415; 82306; 82533; 82607; 84146; 84432; 84439; 84443; 84481; 86376

== ENCOUNTER → 2023-11-05 | Outpatient (CLI) | payer OTHER ==
[2023-11-05 16:26] LABS: T4, Free (Free Thyroxine) 1.39 ng/dL (0.80-1.80)
[2023-11-05 16:35] LABS: Prolactin 6.7 ng/mL (2.800-29.200)
== END | disposition home or self-care (01) ==
LOC: LABWHC1 08:12
PROVIDERS: ATTEND Internal Medicine Endocrinology, Diabetes & Metabolism
DX: E04.2 Nontoxic multinodular goiter (principal); R53.83 Other fatigue
CPT/HCPCS: 36415; 82306; 82533; 82607; 84146; 84439; 84443; 84481

== ENCOUNTER → 2024-03-30 | Outpatient (CLI) | payer OTHER ==
[2024-03-30 10:23] LABS: Basophils # (A) 0.05 X 10*3/uL (0.00-0.10); Basophils % (A) 0.9 %; Eosinophils # (A) 0.16 X 10*3/uL (0.04-0.35); Eosinophils % (A) 2.9 %; HCT 41.7 % (37.2-46.3); HGB 13.7 g/dL (12.0-15.0); Lymphocytes # (A) 1.71 X 10*3/uL (0.90-5.00); Lymphocytes % (A) 30.8 %; MCH 31.5 pg (27.0-32.0); MCHC 32.9 g/dL (32.0-37.0); MCV 95.9 FL (80.0-97.0); Mean Platelet Volume 10.6 FL (9.5-12.2); Monocytes # (A) 0.49 X 10*3/uL (0.20-1.00); Monocytes % (A) 8.8 %; NRBC Per 100 WBC 0 X 10*3/uL (0.00-0.01); Neutrophils # (A) 3.14 X 10*3/uL (1.80-7.70); Neutrophils % (A) 56.4 %; Platelet Count 264 X 10*3/uL (140-440); RBC 4.35 X 10*6/uL (4.10-5.20); RDW 11.8 % (11.5-14.5); WBC 5.56 X 10*3/uL (4.50-10.00)
[2024-03-30 11:13] LABS: ALT 27 U/L (8-44); AST 25 U/L (13-35); Albumin 4.3 g/dL (3.8-4.9); Albumin/Globulin Ratio 1.72 Ratio (1.60-3.17); Alkaline Phosphatase 103 U/L (41-126); Blood Urea Nitrogen 17.6 mg/dL (9.0-27.0); Calcium 9.6 mg/dL (8.7-10.3); Carbon Dioxide 27.8 mmol/L (21.6-31.8); Chloride 107 mmol/L (96-109); Chol/HDL Ratio 2.77 Ratio; Globulin 2.5 g/dL (1.6-3.3); Glucose 97 mg/dL (70-110); Potassium 4.4 mmol/L (3.5-5.5); Sodium 142 mmol/L (135-145); Total Bilirubin 0.4 mg/dL (0.3-1.2); Total Protein 6.8 g/dL (6.2-8.2); VLDL Calculation 11.42 mg/dL (5.00-40.00)
== END | disposition home or self-care (01) ==
LOC: LABWHC1 07:27
PROVIDERS: ATTEND Internal Medicine Endocrinology, Diabetes & Metabolism
DX: Z00.01 Encounter for general adult medical examination with abnormal findings (principal); Z13.220 Encounter for screening for lipoid disorders; E55.9 Vitamin D deficiency, unspecified; E01.0 Iodine-deficiency related diffuse (endemic) goiter
CPT/HCPCS: 36415; 80053; 80061; 82306; 84439; 84443; 85025

== ENCOUNTER → 2024-04-06 | Outpatient (CLI) | payer OTHER ==
--- NOTE | 2024-04-06 15:44 | US ---
EXAMINATION TYPE: US thyroid st tissue head/neck DATE OF EXAM: 04/06/2024 COMPARISON: 07/17/2023 CLINICAL INDICATION: Female, 58 years old with history of E04.2 Nontoxic multinodular goiter; TECHNIQUE: Grayscale and color Doppler imaging of the thyroid gland. FINDINGS: GLAND SIZE: Right Lobe: 4.3 x 1.5 x 1.5 cm Overall Parenchyma: heterogeneous Left Lobe: 4.4 x 1.3 x 1.5 cm Overall Parenchyma: heterogeneous Isthmus Thickness: 0.2 cm NODULES RIGHT: # of nodules measured on right: 1 1. 0.8 X 0.7 x 0.8 cm, lower , mixed cystic and solid, hyperechoic nodule, which is wider than tall , with smooth margins, without echogenic foci. Prior size: 1.2 x 1.1 x 1.2 cm LEFT: # of nodules measured on left: 1 1. 0.7 X 0.5 x 0.6 cm, mid, solid or almost completely solid, hyperechoic nodule, which is wider th an tall, with ill-defined margins, with echogenic foci. Prior size: 0.6 x 0.7 x 0.7 cm ISTHMUS: # of nodules measured in the isthmus: 0 Bilateral neck scanned, no evidence of lymphadenopathy. IMPRESSION: Subcentimeter thyroid nodules too small to characterize. Correlate for thyroiditis. [facility], , 04/06/2024 3:41 PM
== END | disposition home or self-care (01) ==
LOC: RADUSWWP 14:36
PROVIDERS: ATTEND Internal Medicine Endocrinology, Diabetes & Metabolism
DX: E04.2 Nontoxic multinodular goiter (principal)
CPT/HCPCS: 76536